=== PATIENT | female | born 1965 | race African-American/Black ===

== ENCOUNTER 2023-11-21 13:13 | Emergency (ER) | payer MEDICAID ==
[~2023-11-21] VITALS: Ht 167.6 cm; Wt 55.0 kg
[~2023-11-21 13:13] MED LIST: IBUP100T61; UNK MED
[2023-11-21 13:15] VITALS: TEMP 97.6; O2SAT 99
[2023-11-21] MEDS ORDERED: LACTATED RINGERS 1,000 ML IV SCH (13:30)
[2023-11-21 14:07] LABS: BASOPHILS % 0.6 % (0.0-2.0); HEMATOCRIT. 35.9 % (36.0-48.0); HEMOGLOBIN. 11.9 g/dL (12.0-16.0); LYMPHOCYTES % 46.4 % (20.0-50.0); MEAN CORPUSCULAR HEMOGLOBIN 28.9 pg (28.0-32.0); MEAN CORPUSCULAR HGB CONC 33.2 g/dL (31.0-37.0); MEAN PLATELET VOLUME 8.4 fl (7.4-10.4); MONOCYTES % 9.6 % (2.0-8.0); NEUTROPHILS % 42.4 % (40.0-76.0); PLATELET 298 x1000/uL (130-400); RED BLOOD CELL COUNT 4.13 mill/uL (4.2-5.4); RED CELL DISTRIBUTION WIDTH 14.5 % (11.6-14.6); WHITE BLOOD COUNT 6.6 x1000/uL (4.5-11.0)
[2023-11-21 14:12] LABS: CHLORIDE 104 mEq/L (98-107); POTASSIUM 3.6 mEq/L (3.5-5.1); SODIUM 138 mEq/L (136-145)
[2023-11-21 14:13] LABS: CARBON DIOXIDE 29 mEq/L (21-32)
[2023-11-21 14:14] LABS: CALCIUM 9.9 mg/dL (8.7-10.4)
[2023-11-21 14:18] LABS: GLUCOSE 92 mg/dL (70-105); UREA NITROGEN BLOOD 13 mg/dL (9-23)
[2023-11-21 14:28] LABS: TROPONIN I HIGH SENSITIVITY < 4 ng/L (3.0-34)
[2023-11-21 16:37] LABS: TROPONIN I HIGH SENSITIVITY < 4 ng/L (3.0-34)
[2023-11-21 16:57] VITALS: BP 112/74; PULSE 70; RESP 14; O2SAT 100
== END 2023-11-21 16:59 | disposition home or self-care (01) ==
LOC: ER 13:53
DX: R07.89 Other chest pain (principal); Z88.2 Allergy status to sulfonamides
CPT/HCPCS: 36415; 71045; 80048; 84484; 85025; 85379; 93005; 99285